=== PATIENT | female | born 1985 | race Caucasian/White ===

== ENCOUNTER 2019-05-10 20:15 | Emergency (ER) | payer OTHER ==
[2019-05-10] MEDS ORDERED: cefTRIAXone\\ROCEPHIN 250 MG VIAL ONE (21:05)
[2019-05-10] MEDS ORDERED: Azithromycin 250 MG TAB ONE (21:05)
[2019-05-10] MEDS ORDERED: Lidocaine 1% PF 5 ML VIAL ONE (21:05)
[2019-05-10 21:31] LABS: Bacteria/HPF None Seen HPF (None Seen); Bilirubin Negative (Negative); Blood, Urine Trace (Negative); Clarity Clear (Clear); Glucose, Urine (Dipstick) Normal (Negative); Leukocyte Negative Leu/uL (Negative); Nitrite Negative (Negative); Protein, Urine (Dipstick) Negative (Neg-Trace); RBC/HPF 0-3 HPF (0-3); Squamous Epithelial 0-3 HPF (0-3); Urobilinogen Normal mg/dL (Less than 2); WBC/HPF 0-3 HPF (0-3)
[2019-05-10 21:32] LABS: Pregnancy Test - Urine (BHCG) Negative (Negative); Pregu Control Background? CLEAR/WHITE (CLR/WHITE); Pregu Control Bar Appear? YES (CONTROL BAR); Specific Gravity 1.011 (1.002-1.036)
[2019-05-12 21:21] LABS: Chlamydia by PCR Not Detected (NotDetected); GC by PCR Not Detected (NotDetected)
== END 2019-05-10 22:55 | disposition home or self-care (01) ==
LOC: ERS 20:15
DX: N76.0 Acute vaginitis (principal); F17.210 Nicotine dependence, cigarettes, uncomplicated
CPT/HCPCS: 81003; 81015; 81025; 87480; 87491; 87510; 87591; 87660; 99283; J0696; J2001